=== PATIENT | male | born 2000 | race Two or more races ===

== ENCOUNTER 2022-06-19 18:25 | Emergency (ER) | payer SELFPAY ==
[2022-06-19 18:29] VITALS: BP 125/76; PULSE 80; RESP 18; TEMP 36.7; O2SAT 99; BMI 26.6
--- NOTE | 2022-06-19 18:29 | ED.GENADULT ---
HPI - General Adult General Chief complaint: GI Bleed Stated complaint: Bloody stool Time Seen by Provider: 06/19/22 18:57 Related Data Previous Rx's Medication Instructions Recorded docusate sodium 100 mg capsule 100 mg PO BID 7 days #14 caps 06/19/22 (Colace) hydrocortisone acetate [address] BID #12 ea 06/19/22 rectal suppository (Anusol-HC) Allergies Allergy/AdvReac Type Severity Reaction Status Date / Time No Known Allergies Allergy Verified 06/19/22 18:29 [facility] Social History Social History Alcohol intake: current Alcohol intake frequency: a few times a week Substance Use Type: Marijuana Advance Directives: No Advance Directives Information Provided: No Physical Exam ED Vital Signs: BMI result Body Mass Index 26.6 Course Course Course Narrative: 22 year old male presents for evaluation of bloody stool for one month. He reports the stool is sometimes dark in color and occasionally with clots. He has associated rectal pain. Likely hemorrhoids, however given thr reported dark stool and blood clots, will check labs to assess H&H Medical Decision Making Lab Data 06/19/22 18:41 06/19/22 18:41 Labs: Lab Results 06/19/22 06/19/22 Range/Units 18:41 19:07 WBC 10.7 (4.8-10.8) X10*3/uL RBC 5.19 (4.60-5.80) X10*6/uL Hgb 14.8 (14.0-18.0) g/dl Hct 44.2 (42.0-52.0) % MCV 85.2 (80.0-98.0) fL MCH 28.5 (27.0-33.0) pg MCHC 33.5 (31.0-36.0) g/dl RDW 12.7 (11.0-16.0) % Plt Count 277 (160-400) X10*3/uL MPV 9.7 (9.4-12.4) fL Immature Gran % (Auto) 0.5 H (0.0-0.4) % Neut % (Auto) 74.8 H (45-73) % Lymph % (Auto) 19.9 L (20-40) % [place] % (Auto) 3.8 (2-11) % Eos % (Auto) 0.7 (0-4) % Baso % (Auto) 0.3 (0-2) % Lymph # (Auto) 2.1 (1.2-4.9) X10*3/uL [place] # (Auto) 0.4 (0.1-1.2) X10*3/uL Eos # (Auto) 0.1 (0.0-0.4) X10*3/uL Baso # (Auto) 0.0 (0.0-0.2) X10*3/uL Abs Immat Gran (auto) 0.05 H (0.00-0.03) X10*3/uL Absolute Neuts (auto) 8.0 (2.0-8.3) x10*3/uL Absolute Nucleated RBC 0.000 (0.0-0.012) X10*3/uL Nucleated RBC % (auto) 0.0 (0.0-0.2) /100WBC PT 12.3 (10.0-13.1) SEC INR 1.1 (0.9-1.1) APTT 34.1 (26.0-36.4) SEC Sodium 142 (135-145) mmol/L Potassium 3.6 (3.3-5.1) mmol/L Chloride 104 (96-108) mmol/L Carbon Dioxide 28 (22-29) mmol/L Anion Gap 14 (12-20) BUN 12 (9-16) mg/dL Creatinine 1.10 (0.5-1.4) mg/dL Estim Creat Clear Calc 87.4 Estimated GFR > 60 Random Glucose 137 H (60-115) mg/dL Calcium 9.5 (8.4-10.2) mg/dL Stool Occult Blood POSITIVE (NEGATIVE) Discharge Plan Discharge Clinical Impression: Rectal bleed, Hemorrhoids Patient Disposition: Home, Self-Care Instructions: Hemorrhoids (DC), Rectal Bleeding (ED) Additional Instructions: Tus laboratorios regresaron normales. Recomendar seguimiento con gastroenter?logo para colonoscopia. Los s?ntomas pueden deberse a hemorroides internas, se recomienda nuevamente seguimiento con gastroenterolog?a para colonoscopia para reevaluaci?n. Regrese al servicio de urgencias por cualquier dolor abdominal, debilidad, mareos, heces negras, sangrado rectal profuso, v?mitos con juan, desmayos, piel de la pelvis, fiebre, escalofr?os, orina con juan o cualquier otro s?ntoma preocupante. Prescriptions: New docusate sodium [Colace] 100 mg capsule 100 mg PO BID 7 Days Qty: 14 0RF hydrocortisone acetate [Anusol-HC] 25 mg suppository [address] BID Qty: 12 0RF Referrals: [facility] [place] [facility] [Provider Group] (Rectal bleeding) Stand Alone Forms: Work/School Release Interventions: ED Discharge Assessment Last Done: 06/19/22 20:32 Discharge Date/Time: 06/19/22 20:33 Print Language: [place]
[2022-06-19 18:45] LABS: MANUAL DIFF FLAG NO
[2022-06-19 18:52] LABS: Basophils Percent Auto 0.3 % (0-2); Eosinophils Absolute Auto 0.1 X10*3/uL (0.0-0.4); Eosinophils Percent Auto 0.7 % (0-4); Hematocrit 44.2 % (42.0-52.0); Hemoglobin 14.8 g/dl (14.0-18.0); Imm Gran Abs Auto 0.05 X10*3/uL (0.00-0.03); Imm Gran Pct Auto 0.5 % (0.0-0.4); Lymphocytes Absolute Auto 2.1 X10*3/uL (1.2-4.9); Lymphocytes Percent Auto 19.9 % (20-40); Mean Corpuscular HGB Conc 33.5 g/dl (31.0-36.0); Mean Corpuscular Hemoglobin 28.5 pg (27.0-33.0); Mean Corpuscular Volume 85.2 fL (80.0-98.0); Mean Platelet Volume 9.7 fL (9.4-12.4); Monocytes Absolute Auto 0.4 X10*3/uL (0.1-1.2); Monocytes Percent Auto 3.8 % (2-11); Neutrophils Percent Auto 74.8 % (45-73); Platelet Count 277 X10*3/uL (160-400); Red Blood Count 5.19 X10*6/uL (4.60-5.80); Red Cell Distribution Width 12.7 % (11.0-16.0); White Blood Count 10.7 X10*3/uL (4.8-10.8)
[2022-06-19 19:00] LABS: Anion Gap 14 (12-20); Blood Urea Nitrogen 12 mg/dL (9-16); Calcium 9.5 mg/dL (8.4-10.2); Carbon Dioxide 28 mmol/L (22-29); Chloride 104 mmol/L (96-108); Creatinine Clr Calc Pharmacy 87.4; Estimated Glomerular Filt Rate > 60; Glucose Random 137 mg/dL (60-115); Potassium 3.6 mmol/L (3.3-5.1); Sodium 142 mmol/L (135-145)
[2022-06-19 19:01] LABS: INTERNATIONAL NORM RATIO 1.1 (0.9-1.1); Prothrombin Time 12.3 SEC (10.0-13.1)
[2022-06-19 19:03] LABS: Partial Thromboplastin Time 34.1 SEC (26.0-36.4)
--- NOTE | 2022-06-19 19:09 | PC.NURSE ---
Pt resting comfortably on stretcher, alert and oriented x4, italian speaking. Pt reports having abdominal pain in lower abd and bleeding every time he defecates. This RN assisted GERA Godoy with occult stool sample.
[2022-06-19 19:13] LABS: OBS Int Ctl Valid YES; OBS1 POSITIVE (NEGATIVE)
--- NOTE | 2022-06-19 20:08 | ED_ITS ---
HPI - General Adult General Chief complaint: GI Bleed Stated complaint: Bloody stool Time Seen by Provider: 06/19/22 18:57 Source: patient Mode of arrival: ambulatory Limitations: no limitations History of Present Illness HPI narrative: 22 yold male presents to the ED with blood in the stool for one month. Patient states he everytime he has a bowel movement he has rectal pain. Patient states when he wipes he his rectum he sees blood in the tissue. He states stool is brown. Patient denies any abdominal pain, cramping, nausea, or vomiting. Patient denies any fever chills. Related Data Previous Rx's Medication Instructions Recorded docusate sodium 100 mg capsule 100 mg PO BID 7 days #14 caps 06/19/22 (Colace) hydrocortisone acetate 25 mg 25 mg CA BID #12 ea 06/19/22 rectal suppository (Anusol-HC) Allergies Allergy/AdvReac Type Severity Reaction Status Date / Time No Known Allergies Allergy Verified 06/19/22 18:29 Review of Systems Review of Systems: Painful defecation. Blood in stool Yes all other systems are reviewed and are negative [facility] Social History Social History Alcohol intake: current Alcohol intake frequency: a few times a week Smoked in Last 30 Days: No Use of substances other than those prescribed or required for medical reasons: Yes Substance Use Type: Marijuana Advance Directives: No Advance Directives Information Provided: No Physical Exam ED Vital Signs: Vital Signs - 24 hr 06/19/22 18:29 Temperature 98.0 F Pulse Rate 80 Respiratory Rate 18 Blood Pressure 125/76 Pulse Oximetry 99 Oxygen Delivery Method Room Air BMI result Body Mass Index 26.6 Const General: cooperative, healthy appearing, comfortable, no acute distress, well developed, alert, awake and Physically active Orientation/consciousness: oriented to person, oriented to place, oriented to time and patient oriented x3 HENMT Head: Yes normal to inspection, Yes No palpable skull fracture present, Yes normocephalic, Yes atraumatic and No abrasion Eyes General: appearance normal, both eyes and all related structures Neck Neck: Yes normal visual inspection, Yes full ROM, Yes no lymphadenopathy, Yes no meningeal signs, Yes trachea midline, Yes supple, No anterior neck swelling and No tender Chest Chest palpation & inspection: normal inspection of the chest and normal palpation of entire chest wall Resp Effort & Inspection: normal respiratory effort and able to speak in complete sentences Auscultation: clear to auscultation bilaterally Cardio Jugular venous distension: no JVD Heart sounds: S1 normal heart sound present and S2 normal heart sound present GI Other: Rectal exam negative for any active bleeding, anal fissures, black stool, bright red blood, or melena. Stool is brown. Negative for external hemorrhoids. possible palpable internal hemmroihds Inspection: Yes normal to inspection and No abdominal wall ecchymosis Palpation (GI): Soft to palpation, not firm, nontender, no guarding and not rigid General: No CVA tenderness and Yes no CVA tenderness Back/Spine/Pelvis Back: no CVA tenderness, No CVA tenderness and No back tenderness Skin General skin exam: no rashes or lesions noted and elasticity normal Neuro General: oriented to person, oriented to place, oriented to time, patient oriented x3, gait normal, tone normal, moves all extremities, Normal light touch and pain sensation, no meningeal signs, no focal motor deficits, CN's II-XI intact bilaterally and normal sensation to monofilament Extrem General: Yes normal to inspection and Yes full ROM Psych Appearance: grossly normal, well kempt and not disheveled Course Course Course Narrative: 22-year-old male presents to the ED for 1 month of stool in the blood and painful defecation. Patient denies any abdominal pain, nausea, vomiting, abdominal cramping, fever, chills, any recent trauma. Labs were ordered. Reevaluation(s) Reevaluation #1: Labs are normal. Negative for anemia. Patient is hemodynamically stable. Abdomen is benign no need for imaging. Patient informed to follow-up with gastroenterology for episodes of rectal bleeding may be due to internal hemorrhoids. Patient informed benefit of colonoscopy. Time: 20:17 Medical Decision Making Medical Decision Making MDM Narrative: 22-year-old male with 1 month of painful defecation and blood in stool. Negative for any abdominal tenderness/pain/cramping/vomiting. Patient well- appearing. Patient denies any recent trauma, fever, or chills. Negative for any abdominal tenderness no need for CT scan of abdomen pelvis. Patient hemodynamically stable after 1 month. Not suspecting GI bleed. Rectal exam stool is brown. Differential Diagnosis Differential Diagnoses: The differential diagnosis associated with the presentation includes (Hemorrhoids, colitis, GI bleed,) Admission/Observation Consideration of admission/observation: Escalation of care including admission/observation considered Lab Data MDM Lab Attestation statement: I reviewed the patient's lab results. 06/19/22 18:41 06/19/22 18:41 Labs: Lab Results 06/19/22 06/19/22 06/19/22 Range/Units 18:41 18:41 18:41 WBC 10.7 (4.8-10.8) X10*3/uL RBC 5.19 (4.60-5.80) X10*6/uL Hgb 14.8 (14.0-18.0) g/dl Hct 44.2 (42.0-52.0) % MCV 85.2 (80.0-98.0) fL MCH 28.5 (27.0-33.0) pg MCHC 33.5 (31.0-36.0) g/dl RDW 12.7 (11.0-16.0) % Plt Count 277 (160-400) X10*3/uL MPV 9.7 (9.4-12.4) fL Immature Gran % (Auto) 0.5 H (0.0-0.4) % Neut % (Auto) 74.8 H (45-73) % Lymph % (Auto) 19.9 L (20-40) % Day % (Auto) 3.8 (2-11) % Eos % (Auto) 0.7 (0-4) % Baso % (Auto) 0.3 (0-2) % Lymph # (Auto) 2.1 (1.2-4.9) X10*3/uL Day # (Auto) 0.4 (0.1-1.2) X10*3/uL Eos # (Auto) 0.1 (0.0-0.4) X10*3/uL Baso # (Auto) 0.0 (0.0-0.2) X10*3/uL Abs Immat Gran (auto) 0.05 H (0.00-0.03) X10*3/uL Absolute Neuts (auto) 8.0 (2.0-8.3) x10*3/uL Absolute Nucleated RBC 0.000 (0.0-0.012) X10*3/uL Nucleated RBC % (auto) 0.0 (0.0-0.2) /100WBC PT 12.3 (10.0-13.1) SEC INR 1.1 (0.9-1.1) APTT 34.1 (26.0-36.4) SEC Sodium 142 (135-145) mmol/L Potassium 3.6 (3.3-5.1) mmol/L Chloride 104 (96-108) mmol/L Carbon Dioxide 28 (22-29) mmol/L Anion Gap 14 (12-20) BUN 12 (9-16) mg/dL Creatinine 1.10 (0.5-1.4) mg/dL Estim Creat Clear Calc 87.4 Estimated GFR > 60 Random Glucose 137 H (60-115) mg/dL Calcium 9.5 (8.4-10.2) mg/dL Stool Occult Blood (NEGATIVE) 06/19/22 Range/Units 19:07 WBC (4.8-10.8) X10*3/uL RBC (4.60-5.80) X10*6/uL Hgb (14.0-18.0) g/dl Hct (42.0-52.0) % MCV (80.0-98.0) fL MCH (27.0-33.0) pg MCHC (31.0-36.0) g/dl RDW (11.0-16.0) % Plt Count (160-400) X10*3/uL MPV (9.4-12.4) fL Immature Gran % (Auto) (0.0-0.4) % Neut % (Auto) (45-73) % Lymph % (Auto) (20-40) % Day % (Auto) (2-11) % Eos % (Auto) (0-4) % Baso % (Auto) (0-2) % Lymph # (Auto) (1.2-4.9) X10*3/uL Day # (Auto) (0.1-1.2) X10*3/uL Eos # (Auto) (0.0-0.4) X10*3/uL Baso # (Auto) (0.0-0.2) X10*3/uL Abs Immat Gran (auto) (0.00-0.03) X10*3/uL Absolute Neuts (auto) (2.0-8.3) x10*3/uL Absolute Nucleated RBC (0.0-0.012) X10*3/uL Nucleated RBC % (auto) (0.0-0.2) /100WBC PT (10.0-13.1) SEC INR (0.9-1.1) APTT (26.0-36.4) SEC Sodium (135-145) mmol/L Potassium (3.3-5.1) mmol/L Chloride (96-108) mmol/L Carbon Dioxide (22-29) mmol/L Anion Gap (12-20) BUN (9-16) mg/dL Creatinine (0.5-1.4) mg/dL Estim Creat Clear Calc Estimated GFR Random Glucose (60-115) mg/dL Calcium (8.4-10.2) mg/dL Stool Occult Blood POSITIVE (NEGATIVE) Radiology Impression Discussion of test interpretation with radiology: I have reviewed the radiologist's reading. Prescription Management I considered prescription management with: Other (Colace. Anusol) Discharge Plan Discharge Clinical Impression: Rectal bleed, Hemorrhoids Patient Disposition: Home, Self-Care Instructions: Hemorrhoids (DC), Rectal Bleeding (ED) Additional Instructions: Tus laboratorios regresaron normales. Recomendar seguimiento con gastroenter?logo para colonoscopia. Los s?ntomas pueden deberse a hemorroides internas, se recomienda nuevamente seguimiento con gastroenterolog?a para colonoscopia para reevaluaci?n. Regrese al servicio de urgencias por cualquier dolor abdominal, debilidad, mareos, heces negras, sangrado rectal profuso, v?mitos con juan, desmayos, piel de la pelvis, fiebre, escalofr?os, orina con juan o cualquier otro s?ntoma preocupante. Prescriptions: New docusate sodium [Colace] 100 mg capsule 100 mg PO BID 7 Days Qty: 14 0RF hydrocortisone acetate [Anusol-HC] 25 mg suppository 25 mg [place] BID Qty: 12 0RF [place] [facility] [place] [facility] [place] [facility] [place]Provider Group] (Rectal bleeding) Stand Alone Forms: Work/School Release Interventions: ED Discharge Assessment Last Done: 06/19/22 20:32 Discharge Date/Time: 06/19/22 20:33 Print Language: Slovenian
== END 2022-06-19 20:33 | disposition home or self-care (01) ==
PROVIDERS: Physician Assistant; Emergency Provider Emergency Medicine
DX: K62.5 Hemorrhage of anus and rectum (principal); K64.9 Unspecified hemorrhoids
CPT/HCPCS: 36415; 80048; 82272; 85025; 85610; 85730; 99283; 99284

== ENCOUNTER 2022-07-03 16:25 | Emergency (ER) | payer SELFPAY ==
--- NOTE | ~2022-07-03 | XR_ITS ---
EXAMINATION: XR CHEST CLINICAL INFORMATION: Chest pain and shortness of breath COMPARISON: None available. TECHNIQUE: 2 views of the chest were obtained. FINDINGS: No significant abnormality is noted involving the heart, lungs, mediastinum, bony thorax or soft tissues. XR/XR chest 2V IMPRESSION: Unremarkable examination.
--- NOTE | 2022-07-03 16:26 | ECG_ITS ---
Test Reason : DYSPNEA Blood Pressure : / mmHG Vent. Rate : 081 BPM Atrial Rate : 081 BPM P-R Int : 138 ms QRS Dur : 084 ms QT Int : 346 ms P-R-T Axes : 011 052 012 degrees QTc Int : 401 ms Normal sinus rhythm Normal ECG No previous ECGs available Referred By: Susan House Electronically Signed By:SHAREE CHOE MD
--- NOTE | 2022-07-03 16:26 | ED.CHESTPAIN ---
HPI - Chest Pain General Chief Complaint: Dyspnea <GERA Hooks Last Filed: 07/03/22 16:30> Stated Complaint: chest tightness, sob <GERA Hooks Last Filed: 07/03/22 16:30> Time Seen by Provider: 07/03/22 16:44 <GERA Hooks Last Filed: 07/03/22 16:30> Source: patient and bilingual interpreter <GERA Aguiar Last Filed: 07/03/22 17:55> Mode of arrival: ambulatory <GERA Aguiar Last Filed: 07/03/22 17:55> Limitations: language barrier <GERA Aguiar Last Filed: 07/03/22 17:55> History of Present Illness HPI narrative: Patient is a 22 year old assigned male at with a history of asthma presenting to the emergency department today with 2-3 weeks of increased shortness of breath. Patient states that over the last 2-3 weeks, he has had an increase in feeling short of breath. Patient states that it comes and goes. Patient denies any dizziness, lightheadedness, abdominal pain, nausea, vomiting, fever, chills, blurry vision, double vision, loss of vision, chest pain, back pain, night sweats, pain with urination, increased urinary frequency, increased urinary urgency, blood in his urine or stool, syncope or a near syncopal episode, recent trauma or falls, bowel incontinence, bladder incontinence, bowel retention, bladder retention, or any other complaints at this time. <GERA Aguiar Last Filed: 07/03/22 17:55> Related Data Home Medications: Previous Rx's Medication Instructions Recorded docusate sodium 100 mg capsule 100 mg PO BID 7 days #14 caps 06/19/22 (Colace) hydrocortisone acetate [address] BID #12 ea 06/19/22 rectal suppository (Anusol-HC) <GERA Hooks Last Filed: 07/03/22 16:30> Allergies/Adverse Reactions: Allergies Allergy/AdvReac Type Severity Reaction Status Date / Time No Known Allergies Allergy Verified 06/19/22 18:29 <GERA Hooks Last Filed: 07/03/22 16:30> Review of Systems Constitutional: Constitutional: Reports no additional constitutional complaints, Denies chills, Denies fever(s) and Denies night sweats <GERA Aguiar - Last Filed: 07/03/22 17:55> Eyes: Eyes: Reports no additional eye complaints, Denies blurry vision, Denies change in vision, Denies diplopia, Denies eye discharge, Denies loss of vision and Denies eye pain <GERA Aguiar - Last Filed: 07/03/22 17:55> ENT: Denies dizziness <GERA Aguiar - Last Filed: 07/03/22 17:55> Cardiovascular: Cardiovascular: Reports no additional cardiovascular complaints, Denies chest pain, Denies lightheadedness, Denies Loss of Consciousness and Reports dyspnea <GERA Aguiar - Last Filed: 07/03/22 17:55> Respiratory: Respiratory: Reports no additional respiratory complaints and Reports dyspnea <GERA Aguiar - Last Filed: 07/03/22 17:55> Gastrointestinal: Gastrointestinal: Reports no additional gastrointestinal complaints, Denies abdominal pain, Denies melena, Denies hematochezia, Denies change in bowel habits and Denies change in stool character <GERA Aguiar - Last Filed: 07/03/22 17:55> Genitourinary: Genitourinary: Reports no additional male genitourinary complaints, Denies hematuria, Denies oliguria, Denies difficulty urinating, Denies dysuria, Denies urinary frequency, Denies urinary hesitancy, Denies urinary incontinence and Denies urinary urgency <GERA Aguiar - Last Filed: 07/03/22 17:55> Musculoskeletal: Musculoskeletal: Reports no additional musculoskeletal complaints, Denies numbness and Denies tingling <GERA Aguiar - Last Filed: 07/03/22 17:55> Neurologic: Denies dizziness, Denies loss of vision, Denies numbness and Denies tingling <GERA Aguiar - Last Filed: 07/03/22 17:55> Psychiatric: Psychiatric: Reports no additional psychiatric complaints <GERA Aguiar - Last Filed: 07/03/22 17:55> Endocrine: Endocrine: Reports no additional endocrine complaints <GERA Aguiar - Last Filed: 07/03/22 17:55> Hematologic/Lymphatic: Hematologic/Lymphatic: Reports no additional hematologic/lymphatic complaints <GERA Aguiar - Last Filed: 07/03/22 17:55> Allergic/Immunologic: Allergic/Immunologic: Reports no additional allergic/immunologic complaints <GERA Aguiar - Last Filed: 07/03/22 17:55> PMFSH Past Medical History Attestation statement: The following information was validated with the patient. <GERA Aguiar - Last Filed: 07/03/22 17:55> Source: old records reviewed and nursing notes reviewed <GERA Aguiar - Last Filed: 07/03/22 17:55> Social History Social History: Social History Alcohol intake: current Alcohol intake frequency: a few times a week Substance Use Type: Marijuana Advance Directives: No Advance Directives Information Provided: No <GERA Hooks - Last Filed: 07/03/22 16:30> Physical Exam Vital Signs: Vital Signs: Last Vital Signs Temp 97.2 F 07/03/22 16:27 Pulse 93 07/03/22 17:34 Resp 16 07/03/22 16:27 BP 144/80 H 07/03/22 16:27 Pulse Ox 97 07/03/22 17:34 O2 Del Method Room Air 07/03/22 17:34 BMI result Body Mass Index 24.9 <GERA Hooks - Last Filed: 07/03/22 16:30> Vital Signs: Last Vital Signs Temp 97.2 F 07/03/22 16:27 Pulse 93 07/03/22 17:34 Resp 16 07/03/22 16:27 BP 144/80 H 07/03/22 16:27 Pulse Ox 97 07/03/22 17:34 O2 Del Method Room Air 07/03/22 17:34 BMI result Body Mass Index 24.9 <GERA Aguiar - Last Filed: 07/03/22 17:55> Const: General: cooperative, no acute distress, alert and awake <GERA Aguiar - Last Filed: 07/03/22 17:55> Nutritional Appearance: well nourished <GERA Aguiar - Last Filed: 07/03/22 17:55> Orientation/consciousness: patient oriented x3 <Caitlin Saba, MA - Last Filed: 07/03/22 17:55> Limitations: no limitations <Caitlinvikram RobinsGERA russ - Last Filed: 07/03/22 17:55> HEENT: Head: Yes normal to inspection and Yes atraumatic <Caitlin Saba MA - Last Filed: 07/03/22 17:55> Ears: hearing grossly normal bilaterally and external ears normal <Caitlinvikram Robinsjeb MA - Last Filed: 07/03/22 17:55> General nose exam: Normal external nose present, no nasal discharge noted and no epistaxis <Caitlin Saba MA - Last Filed: 07/03/22 17:55> Face and sinus: Yes normal facial exam, No abrasion and No laceration <Caitlin Saba, MA - Last Filed: 07/03/22 17:55> Mouth: Normal oral and palatal mucosa present, no drooling and no muffled voice <Caitlin Saba MA - Last Filed: 07/03/22 17:55> Eyes: General: appearance normal, both eyes and all related structures <Caitlin Saba MA - Last Filed: 07/03/22 17:55> Periorbital: periorbital findings normal <Caitlin Saba MA - Last Filed: 07/03/22 17:55> Eyelids: Yes eyelids normal <Caitlin Saba, MA - Last Filed: 07/03/22 17:55> Conjunctivae: conjunctivae normal <Caitlin Saba MA - Last Filed: 07/03/22 17:55> Pupils: Equal, round and reactive pupils present <Caitlin Saba MA - Last Filed: 07/03/22 17:55> EOM: EOMs intact bilaterally <Caitlin Saba MA - Last Filed: 07/03/22 17:55> Neck: Neck: Yes normal visual inspection, Yes full ROM and Yes no lymphadenopathy <GERA Aguiar - Last Filed: 07/03/22 17:55> Chest: Chest palpation & inspection: normal inspection of the chest <GERA Aguiar - Last Filed: 07/03/22 17:55> Resp: Effort & Inspection: normal respiratory effort and able to speak in complete sentences <Caitlin RobinsGERA russ - Last Filed: 07/03/22 17:55> Auscultation: wheezes scattered wheezes <Caitlin RobinsGERA russ - Last Filed: 07/03/22 17:55> Cardio: Rate: regular rate <Caitlin SabaGERA - Last Filed: 07/03/22 17:55> Rhythm: regular rhythm <Caitlin RobinsGERA russ - Last Filed: 07/03/22 17:55> GI: Inspection: Yes normal to inspection <Caitlin SabaGERA - Last Filed: 07/03/22 17:55> Neuro: General: patient oriented x3 and moves all extremities <Caitlin RobinsGERA russ - Last Filed: 07/03/22 17:55> Cranial nerves: Yes Equal, round and reactive pupils present <Caitlin SabaGERA - Last Filed: 07/03/22 17:55> Cognition (Neuro): normal cognition <Caitlin RobinsGERA russ - Last Filed: 07/03/22 17:55> Motor exam (neuro): 5/5 motor strength present throughout <Caitlin SabaGERA - Last Filed: 07/03/22 17:55> Sensory Exam: Normal double simultaneous stimulation for sensation <Caitlin RobinsGERA russ - Last Filed: 07/03/22 17:55> Coordination: [id number]-[id number] test normal <Caitlin SabaGERA - Last Filed: 07/03/22 17:55> Extrem: General: Yes normal to inspection, Yes full ROM and Yes capillary refill normal <Caitlin RobinsGERA russ - Last Filed: 07/03/22 17:55> Psych: Appearance: grossly normal <Caitlin RobinsGERA russ - Last Filed: 07/03/22 17:55> Mental Status: mental status grossly normal <Caitlin RobinsGERA russ - Last Filed: 07/03/22 17:55> Affect: normal affect <Caitlin RobinsGERA russ - Last Filed: 07/03/22 17:55> Attitude: cooperative <Caitlin RobinsGERA russ - Last Filed: 07/03/22 17:55> Thought process: Normal thought process present <Caitlin GERA Saba - Last Filed: 07/03/22 17:55> Thought content: Normal thought content present <GERA Aguiar - Last Filed: 07/03/22 17:55> Insight: Good insight present (Psych) <GERA Aguiar - Last Filed: 07/03/22 17:55> Course Course Course Narrative: RME: 22yo M w/no sig PMHx c/o chest tightness and SOB x 1 week worsening over the past 3 days with assoc palpitations. Admits pain initially intermittent, now more constant Lungs CTA, abdomen soft/nontender EKG, labs, COVID/flu, CXR ordered Full HPI, ROS and PE to be performed by primary ED provider. <GERA Hooks - Last Filed: 07/03/22 16:30> Medications Administered Discontinued Medications Generic Name Dose Route Start Last Admin Trade Name Freq PRN Reason Stop Dose Admin Albuterol Sulfate 2 puff 07/03/22 17:27 07/03/22 17:35 Albuterol Sulfate 90 Mcg 8 Gm Inhaler INHALE 07/03/22 17:28 2 puff ONCE ONE Administration <GERA Hooks - Last Filed: 07/03/22 16:30> Medications Administered Discontinued Medications Generic Name Dose Route Start Last Admin Trade Name Freq PRN Reason Stop Dose Admin Albuterol Sulfate 2 puff 07/03/22 17:27 07/03/22 17:35 Albuterol Sulfate 90 Mcg 8 Gm Inhaler INHALE 07/03/22 17:28 2 puff ONCE ONE Administration <GERA Aguiar - Last Filed: 07/03/22 17:55> Medical Decision Making Medical Decision Making [facility] Narrative: Patient is a 22 year old assigned male at with a history of asthma presenting to the emergency department today with intermittent shortness of breath. Patient's physical exam showed scattered wheezes but was otherwise unremarkable. Patient's blood work was unremarkable. Patient's EKG was unremarkable. Patient's chest x-ray showed no acute process. I explained my physical exam findings as well as all test results to the patient. I answered all questions asked by the patient. Patient used an albuterol inhaler while in the department which he stated helped his symptoms significantly. I stressed the importance of the patient taking his medication as prescribed. I stressed the importance of the patient following up with his primary care provider. I stressed the importance of the patient returning to the emergency department immediately if his symptoms were to worsen or if he were to develop any dizziness, shortness of breath, difficulty breathing, chest pain, blurry vision, loss of vision, nausea, vomiting, abdominal pain, fever, chills, back pain, or any other complaints. Patient verbalized agreement and understanding with this treatment plan and discharge. <GERA Aguiar - Last Filed: 07/03/22 17:55> Differential Diagnosis Differential Diagnoses: The differential diagnosis associated with the presentation includes <GERA Aguiar - Last Filed: 07/03/22 17:55> asthma <GERA Aguiar - Last Filed: 07/03/22 17:55> Admission/Observation Consideration of admission/observation: Escalation of care including admission/observation considered <GERA Aguiar - Last Filed: 07/03/22 17:55> If patient was hypoxic, he would have been admitted. <GERA Aguiar - Last Filed: 07/03/22 17:55> Lab Data MDM Lab Attestation statement: I reviewed the patient's lab results. <GERA Aguiar - Last Filed: 07/03/22 17:55> Result Diagrams: 07/03/22 16:47 07/03/22 16:47 <GERA Hooks - Last Filed: 07/03/22 16:30> Labs: Lab Results 07/03/22 07/03/22 07/03/22 Range/Units 16:47 16:47 16:47 WBC 9.1 (4.8-10.8) X10*3/uL RBC 5.12 (4.60-5.80) X10*6/uL Hgb 14.7 (14.0-18.0) g/dl Hct 44.8 (42.0-52.0) % MCV 87.5 (80.0-98.0) fL MCH 28.7 (27.0-33.0) pg MCHC 32.8 (31.0-36.0) g/dl RDW 12.6 (11.0-16.0) % Plt Count 330 (160-400) X10*3/uL MPV 9.8 (9.4-12.4) fL Immature Gran % (Auto) 0.7 H (0.0-0.4) % Neut % (Auto) 70.2 (45-73) % Lymph % (Auto) 22.3 (20-40) % Keith % (Auto) 5.3 (2-11) % Eos % (Auto) 1.0 (0-4) % Baso % (Auto) 0.5 (0-2) % Lymph # (Auto) 2.0 (1.2-4.9) X10*3/uL Keith # (Auto) 0.5 (0.1-1.2) X10*3/uL Eos # (Auto) 0.1 (0.0-0.4) X10*3/uL Baso # (Auto) 0.1 (0.0-0.2) X10*3/uL Abs Immat Gran (auto) 0.06 H (0.00-0.03) X10*3/uL Absolute Neuts (auto) 6.4 (2.0-8.3) x10*3/uL Absolute Nucleated RBC 0.000 (0.0-0.012) X10*3/uL Nucleated RBC % (auto) 0.0 (0.0-0.2) /100WBC Sodium 142 (135-145) mmol/L Potassium 4.0 (3.3-5.1) mmol/L Chloride 104 (96-108) mmol/L Carbon Dioxide 29 (22-29) mmol/L Anion Gap 13 (12-20) BUN 15 (9-16) mg/dL Creatinine 1.03 (0.5-1.4) mg/dL Estim Creat Clear Calc 93.3 Estimated GFR > 60 Random Glucose 91 (60-115) mg/dL Calcium 9.7 (8.4-10.2) mg/dL Total Bilirubin 0.4 (0.0-1.0) mg/dL Direct Bilirubin 0.1 (0.0-0.5) mg/dL AST 19 (5-37) U/L ALT 23 (0-40) U/L Alkaline Phosphatase 73 (39-117) U/L Troponin I High Sens < 2.7 (<3.5-35.0) ng/L Total Protein 7.6 (6.5-8.0) g/dL Albumin 4.6 (3.5-5.0) g/dL TSH (0.32-4.0) uIU/mL COVID-19 (EMMANUEL) (Negative) COVID-19 Clin Com Influenza Type A (BRANDI) (Negative) Influenza Type B (BRANDI) (Negative) Influenza A & B Note 07/03/22 07/03/22 07/03/22 Range/Units 16:47 16:47 16:47 WBC (4.8-10.8) X10*3/uL RBC (4.60-5.80) X10*6/uL Hgb (14.0-18.0) g/dl Hct (42.0-52.0) % MCV (80.0-98.0) fL MCH (27.0-33.0) pg MCHC (31.0-36.0) g/dl RDW (11.0-16.0) % Plt Count (160-400) X10*3/uL MPV (9.4-12.4) fL Immature Gran % (Auto) (0.0-0.4) % Neut % (Auto) (45-73) % Lymph % (Auto) (20-40) % Keith % (Auto) (2-11) % Eos % (Auto) (0-4) % Baso % (Auto) (0-2) % Lymph # (Auto) (1.2-4.9) X10*3/uL Keith # (Auto) (0.1-1.2) X10*3/uL Eos # (Auto) (0.0-0.4) X10*3/uL Baso # (Auto) (0.0-0.2) X10*3/uL Abs Immat Gran (auto) (0.00-0.03) X10*3/uL Absolute Neuts (auto) (2.0-8.3) x10*3/uL Absolute Nucleated RBC (0.0-0.012) X10*3/uL Nucleated RBC % (auto) (0.0-0.2) /100WBC Sodium (135-145) mmol/L Potassium (3.3-5.1) mmol/L Chloride (96-108) mmol/L Carbon Dioxide (22-29) mmol/L Anion Gap (12-20) BUN (9-16) mg/dL Creatinine (0.5-1.4) mg/dL Estim Creat Clear Calc Estimated GFR Random Glucose (60-115) mg/dL Calcium (8.4-10.2) mg/dL Total Bilirubin (0.0-1.0) mg/dL Direct Bilirubin (0.0-0.5) mg/dL AST (5-37) U/L ALT (0-40) U/L Alkaline Phosphatase (39-117) U/L Troponin I High Sens (<3.5-35.0) ng/L Total Protein (6.5-8.0) g/dL Albumin (3.5-5.0) g/dL TSH 1.42 (0.32-4.0) uIU/mL COVID-19 (EMMANUEL) Negative (Negative) COVID-19 Clin Com See Note Influenza Type A (BRANDI) Negative (Negative) Influenza Type B (BRANDI) Negative (Negative) Influenza A & B Note See Note <GERA Hooks - Last Filed: 07/03/22 16:30> Lab Results 07/03/22 07/03/22 07/03/22 Range/Units 16:47 16:47 16:47 WBC 9.1 (4.8-10.8) X10*3/uL RBC 5.12 (4.60-5.80) X10*6/uL Hgb 14.7 (14.0-18.0) g/dl Hct 44.8 (42.0-52.0) % MCV 87.5 (80.0-98.0) fL MCH 28.7 (27.0-33.0) pg MCHC 32.8 (31.0-36.0) g/dl RDW 12.6 (11.0-16.0) % Plt Count 330 (160-400) X10*3/uL MPV 9.8 (9.4-12.4) fL Immature Gran % (Auto) 0.7 H (0.0-0.4) % Neut % (Auto) 70.2 (45-73) % Lymph % (Auto) 22.3 (20-40) % Keith % (Auto) 5.3 (2-11) % Eos % (Auto) 1.0 (0-4) % Baso % (Auto) 0.5 (0-2) % Lymph # (Auto) 2.0 (1.2-4.9) X10*3/uL Keith # (Auto) 0.5 (0.1-1.2) X10*3/uL Eos # (Auto) 0.1 (0.0-0.4) X10*3/uL Baso # (Auto) 0.1 (0.0-0.2) X10*3/uL Abs Immat Gran (auto) 0.06 H (0.00-0.03) X10*3/uL Absolute Neuts (auto) 6.4 (2.0-8.3) x10*3/uL Absolute Nucleated RBC 0.000 (0.0-0.012) X10*3/uL Nucleated RBC % (auto) 0.0 (0.0-0.2) /100WBC Sodium 142 (135-145) mmol/L Potassium 4.0 (3.3-5.1) mmol/L Chloride 104 (96-108) mmol/L Carbon Dioxide 29 (22-29) mmol/L Anion Gap 13 (12-20) BUN 15 (9-16) mg/dL Creatinine 1.03 (0.5-1.4) mg/dL Estim Creat Clear Calc 93.3 Estimated GFR > 60 Random Glucose 91 (60-115) mg/dL Calcium 9.7 (8.4-10.2) mg/dL Total Bilirubin 0.4 (0.0-1.0) mg/dL Direct Bilirubin 0.1 (0.0-0.5) mg/dL AST 19 (5-37) U/L ALT 23 (0-40) U/L Alkaline Phosphatase 73 (39-117) U/L Troponin I High Sens < 2.7 (<3.5-35.0) ng/L Total Protein 7.6 (6.5-8.0) g/dL Albumin 4.6 (3.5-5.0) g/dL TSH (0.32-4.0) uIU/mL COVID-19 (EMMANUEL) (Negative) COVID-19 Clin Com Influenza Type A (BRANDI) (Negative) Influenza Type B (BRANDI) (Negative) Influenza A & B Note 07/03/22 07/03/22 07/03/22 Range/Units 16:47 16:47 16:47 WBC (4.8-10.8) X10*3/uL RBC (4.60-5.80) X10*6/uL Hgb (14.0-18.0) g/dl Hct (42.0-52.0) % MCV (80.0-98.0) fL MCH (27.0-33.0) pg MCHC (31.0-36.0) g/dl RDW (11.0-16.0) % Plt Count (160-400) X10*3/uL MPV (9.4-12.4) fL Immature Gran % (Auto) (0.0-0.4) % Neut % (Auto) (45-73) % Lymph % (Auto) (20-40) % Keith % (Auto) (2-11) % Eos % (Auto) (0-4) % Baso % (Auto) (0-2) % Lymph # (Auto) (1.2-4.9) X10*3/uL Keith # (Auto) (0.1-1.2) X10*3/uL Eos # (Auto) (0.0-0.4) X10*3/uL Baso # (Auto) (0.0-0.2) X10*3/uL Abs Immat Gran (auto) (0.00-0.03) X10*3/uL Absolute Neuts (auto) (2.0-8.3) x10*3/uL Absolute Nucleated RBC (0.0-0.012) X10*3/uL Nucleated RBC % (auto) (0.0-0.2) /100WBC Sodium (135-145) mmol/L Potassium (3.3-5.1) mmol/L Chloride (96-108) mmol/L Carbon Dioxide (22-29) mmol/L Anion Gap (12-20) BUN (9-16) mg/dL Creatinine (0.5-1.4) mg/dL Estim Creat Clear Calc Estimated GFR Random Glucose (60-115) mg/dL Calcium (8.4-10.2) mg/dL Total Bilirubin (0.0-1.0) mg/dL Direct Bilirubin (0.0-0.5) mg/dL AST (5-37) U/L ALT (0-40) U/L Alkaline Phosphatase (39-117) U/L Troponin I High Sens (<3.5-35.0) ng/L Total Protein (6.5-8.0) g/dL Albumin (3.5-5.0) g/dL TSH 1.42 (0.32-4.0) uIU/mL COVID-19 (EMMANUEL) Negative (Negative) COVID-19 Clin Com See Note Influenza Type A (BRANDI) Negative (Negative) Influenza Type B (BRANDI) Negative (Negative) Influenza A & B Note See Note <GERA Aguiar - Last Filed: 07/03/22 17:55> Independent Interpretation I performed an independent interpretation of an: EKG and Plain X-Ray <GERA Aguiar - Last Filed: 07/03/22 17:55> Interpretation: Vent. Rate: 081 BPM ? ? Atrial Rate: 081 BPM P-R Int: 138 ms? QRS Dur: 084 ms QT Int: 346 ms ? ? ? P-R-T Axes: 011 052 012 degrees QTc Int: 401 ms ? Normal sinus rhythm Normal ECG No previous ECGs available DD/ 1638 My interpretation is in agreement with the radiologist's impression of this imaging study. EXAMINATION: XR CHEST CLINICAL INFORMATION: Chest pain and shortness of breath COMPARISON: None available. TECHNIQUE: 2 views of the chest were obtained. FINDINGS: No significant abnormality is noted involving the heart, lungs, mediastinum, bony thorax or soft tissues. XR/XR chest 2V IMPRESSION: Unremarkable examination Dictated By: Zack Norris MD Signed By: Electronically signed by Zack Norris MD 07/03/22 1736 <GERA Aguiar - Last Filed: 07/03/22 17:55> Discharge Plan Discharge Clinical Impression: Asthma with exacerbation <GERA Hooks Last Filed: 07/03/22 16:30> Patient Disposition: Home, Self-Care <GERA Hooks - Last Filed: 07/03/22 16:30> Instructions: Asthma (DC) <GERA Hooks Last Filed: 07/03/22 16:30> Additional Instructions: Follow up with your primary care provider. Return to the emergency department immediately if your symptoms worsen or if you develop any dizziness, shortness of breath, difficulty breathing, chest pain, blurry vision, loss of vision, nausea, vomiting, abdominal pain, fever, chills, back pain, or any other complaints. Naa un seguimiento con garcia proveedor de atenci?n primaria. Regrese a la williams de emergencias de inmediato si marilyn s?ntomas empeoran o si presenta mareos, dificultad para respirar, dolor de pecho, visi?n borrosa, p?rdida de la visi?n, n?useas, v?mitos, dolor abdominal, fiebre, escalofr?os, dolor de espalda o cualquier otras quejas. <GERA Hooks - Last Filed: 07/03/22 16:30> Prescriptions: No Action docusate sodium [Colace] 100 mg capsule 100 mg PO BID 7 Days Qty: 14 0RF hydrocortisone acetate [Anusol-HC] 25 mg suppository [address] BID Qty: 12 0RF <GERA Hooks Last Filed: 07/03/22 16:30> Referrals: [facility] [Provider Group] (Call to establish and follow up with a primary care provider. If you already have a primary care provider, please follow up with them. Llame para establecer y hacer un seguimiento con un proveedor de atenci?n primaria. Si ya tiene un proveedor de atenci?n primaria, naa un seguimiento con ?l. ) [facility] [Provider Group] (Call to establish and follow up with a primary care provider. If you already have a primary care provider, please follow up with them. Llame para establecer y hacer un seguimiento con un proveedor de atenci?n primaria. Si ya tiene un proveedor de atenci?n primaria, naa un seguimiento con ?l. ) [facility] [Provider Group] (Call to establish and follow up with a primary care provider. If you already have a primary care provider, please follow up with them. Llame para establecer y hacer un seguimiento con un proveedor de atenci?n primaria. Si ya tiene un proveedor de atenci?n primaria, naa un seguimiento con ?l. ) [facility] [Physician] - (Call to establish and follow up with a primary care provider. If you already have a primary care provider, please follow up with them. Llame para establecer y hacer un seguimiento con un proveedor de atenci?n primaria. Si ya tiene un proveedor de atenci?n primaria, naa un seguimiento con ?l.) <GERA Hooks - Last Filed: 07/03/22 16:30> Stand Alone Forms: Work/School Release <GERA Hooks - Last Filed: 07/03/22 16:30> Interventions: ED Discharge Assessment Last Done: 07/03/22 17:36 <GERA Hooks - Last Filed: 07/03/22 16:30> Discharge Date/Time: 07/03/22 17:37 <GERA Hooks - Last Filed: 07/03/22 16:30> Print Language: Portuguese <GERA Hooks - Last Filed: 07/03/22 16:30>
[2022-07-03 16:27] VITALS: BP 144/80; PULSE 92; RESP 16; TEMP 36.2; O2SAT 98; BMI 24.9
[2022-07-03 16:54] LABS: MANUAL DIFF FLAG NO
[2022-07-03 17:14] LABS: IDNOW Serial# BCCEAD1C; Influenza A Negative (Negative); Influenza B2 Negative (Negative)
[2022-07-03 17:15] LABS: Alanine Aminotransferase 23 U/L (0-40); Albumin Level 4.6 g/dL (3.5-5.0); Alkaline Phosphatase 73 U/L (39-117); Anion Gap 13 (12-20); Aspartate Amino Transferase 19 U/L (5-37); Bilirubin Direct 0.1 mg/dL (0.0-0.5); Bilirubin Total 0.4 mg/dL (0.0-1.0); Blood Urea Nitrogen 15 mg/dL (9-16); COVID-19 Test Negative (Negative); Calcium 9.7 mg/dL (8.4-10.2); Carbon Dioxide 29 mmol/L (22-29); Chloride 104 mmol/L (96-108); Creatinine Clr Calc Pharmacy 93.3; Estimated Glomerular Filt Rate > 60; Glucose Random 91 mg/dL (60-115); IDNOW Serial# 08D9AD1C; Sodium 142 mmol/L (135-145); Total Protein 7.6 g/dL (6.5-8.0)
[2022-07-03 17:17] LABS: Basophils Absolute Auto 0.1 X10*3/uL (0.0-0.2); Basophils Percent Auto 0.5 % (0-2); Eosinophils Absolute Auto 0.1 X10*3/uL (0.0-0.4); Hematocrit 44.8 % (42.0-52.0); Hemoglobin 14.7 g/dl (14.0-18.0); Imm Gran Abs Auto 0.06 X10*3/uL (0.00-0.03); Imm Gran Pct Auto 0.7 % (0.0-0.4); Lymphocytes Percent Auto 22.3 % (20-40); Mean Corpuscular HGB Conc 32.8 g/dl (31.0-36.0); Mean Corpuscular Hemoglobin 28.7 pg (27.0-33.0); Mean Corpuscular Volume 87.5 fL (80.0-98.0); Mean Platelet Volume 9.8 fL (9.4-12.4); Monocytes Absolute Auto 0.5 X10*3/uL (0.1-1.2); Monocytes Percent Auto 5.3 % (2-11); Neutrophils Absolute Auto 6.4 x10*3/uL (2.0-8.3); Neutrophils Percent Auto 70.2 % (45-73); Platelet Count 330 X10*3/uL (160-400); Red Blood Count 5.12 X10*6/uL (4.60-5.80); Red Cell Distribution Width 12.6 % (11.0-16.0); White Blood Count 9.1 X10*3/uL (4.8-10.8)
[2022-07-03 17:23] LABS: Troponin-I High Sensitivity < 2.7 ng/L (<3.5-35.0)
[2022-07-03 17:34] VITALS: PULSE 93; O2SAT 97
[2022-07-03] MEDS: Albuterol Sulfate 90 MCG 8 GM INHALER 2 PUFF INHALE (17:35)
[2022-07-03 17:36] LABS: TSH reflex Free T4 1.42 uIU/mL (0.32-4.0)
== END 2022-07-03 17:37 | disposition home or self-care (01) ==
PROVIDERS: Physician Assistant; Emergency Provider Student in an Organized Health Care Education/Training Program
DX: J45.901 Unspecified asthma with (acute) exacerbation (principal); Z20.822 Contact with and (suspected) exposure to COVID-19; R06.02 Shortness of breath; F12.90 Cannabis use, unspecified, uncomplicated; Z79.899 Other long term (current) drug therapy
CPT/HCPCS: 36415; 71046; 80048; 80076; 84443; 84484; 85025; 87502; 87635; 93005; 99283; 99284